=== PATIENT | male | born 1960 | race Caucasian/White ===

== ENCOUNTER 2016-12-21 20:41 | Emergency (ER) | payer OTHER ==
[2016-12-21] MEDS ORDERED: PROPARACAINE 0.5% OPHTH DROPS 15 ML BTL LEFT EYE STA (20:44)
[2016-12-21 20:53] VITALS: BP 93/70; PULSE 60; RESP 18; TEMP 97.8
[2016-12-21] MEDS ORDERED: TOBRAMYCIN 0.3% OPHTH DROPS 5 ML BTL RIGHT EYE STA (20:56)
--- NOTE | 2016-12-21 20:57 | ED ---
Eye Problem HPI - General Stated complaint: FB eye Source: patient, RN notes reviewed Mode of arrival: ambulatory Limitations: no limitations - History of Present Illness Initial comments: 56-year-old male present emergency department with chief complaint of right eye foreign body. Patient states he was working with some metal pain yesterday. Patient states his been bothering him all day. Patient denies any blurred vision. Patient states is slightly painful. Patient states that he does not know his last tetanus was that he does not believe and tetanus and refuses all tetanus shots. Patient states that he's had foreign bodies in his eye the past. - Related Data Previous Rx's Medication Instructions Recorded Hydrocodone/Acetaminophen [[place] 1 each PO Q6HR PRN #30 tab 09/18/16 5-325] predniSONE 10 mg PO DAILY #23 tab 09/18/16 Tobramycin [Tobrex 0.3% Ophth Soln] 1 drop RIGHT EYE Q4HR #5 ml 12/21/16 Allergies Allergy/AdvReac Type Severity Reaction Status Date / Time No Known Allergies Allergy Verified 12/21/16 20:47 Review of Systems ROS Statement: Those systems with pertinent positive or pertinent negative responses have been documented in the HPI. ROS Other: All systems not noted in ROS Statement are negative. Past Medical History Past Medical History: GERD/Reflux, Myocardial Infarction ([place]), Osteoarthritis ( OA), Thyroid Disorder Additional Past Medical History / Comment(s): Abcess on back, removed and cultured. On antibiotics for a while. Fall 2014 Last Myocardial Infarction Date:: 03/14/16 History of Any Multi-Drug Resistant Organisms: MRSA Date of last positivie culture/infection: April, MDRO Source:: Middle back abcess Past Surgical History: Heart Catheterization Additional Past Surgical History / Comment(s): 03/14/16 cardiac cath normal, R hand index and little finger tendon repair, removal of an abscess on his back. Additional Past Anesthesia/Blood Transfusion Reaction / Comment(s): No past transfusions. Past Psychological History: No Psychological Hx Reported Additional Psychological History / Comment(s): Pt's adult son recently moved in with him and pt states his son is "high strung." Pt does not drive. He rides his bicycle all year to get places. Smoking Status: Current every day smoker Past Alcohol Use History: None Reported Additional Past Alcohol Use History / Comment(s): Pt started smoking in 1977 and quit in 2012 then resumed smoking 6 months ago-1ppd. Past Drug Use History: Marijuana Additional Drug Use History / Comment(s): Pt states he smokes marijuana on occassion but not daily. - Past Family History Father Family Medical History: Diabetes Mellitus, Myocardial Infarction ([place]) Additional Family Medical History / Comment(s): Father had an [place] at the age of 78 or 79yrs and shortly thereafter. Mother Family Medical History: Vascular Disorder Additional Family Medical History / Comment(s): Passed from a AAA that burst at the age of 72yrs.. General Exam Limitations: no limitations General appearance: alert, in no apparent distress Head exam: Present: atraumatic, normocephalic, normal inspection Eye exam: Present: PERRL, EOMI, conjunctival injection (Right). Absent: normal appearance (Foreign body noted in the 8 o'clock position black dot), scleral icterus, periorbital swelling Pupils: Present: other (2 drops of proparacaine were used to anesthetize the right eye complete relief of all symptoms. Fluorescein dye was used to evaluate the right eye foreign body noted in the 8 o'clock position) ENT exam: Present: normal exam, normal oropharynx, mucous membranes moist, TM's normal bilaterally, normal external ear exam Neck exam: Present: normal inspection, full ROM. Absent: tenderness, meningismus, lymphadenopathy Respiratory exam: Present: normal lung sounds bilaterally. Absent: respiratory distress, wheezes, rales, rhonchi, stridor Cardiovascular Exam: Present: regular rate, normal rhythm, normal heart sounds. Absent: systolic murmur, diastolic murmur, rubs, gallop, clicks Course Vital Signs 12/21/16 20:48 Temperature 97.8 F Pulse Rate 60 Respiratory 18 Rate Blood Pressure 93/70 O2 Sat by Pulse 100 Oximetry Procedures - Procedures Initial comment: Right eye foreign body 2 drops of proparacaine were used to anesthetize the right eye jas brush was used to remove foreign body completely no rust ring Medical Decision Making - Medical Decision Making 56-year-old male present emergency department with chief complaint of foreign bite to the right eye. This was removed using albuterol brushed well no compilations. Patient refused tetanus understands risks. Patient follow-up with in one to 2 days. Return parameters were discussed. Disposition Clinical Impression: Corneal FB (foreign body) Disposition: HOME SELF-CARE Condition: Stable Instructions: Eye Foreign Body (ED) Additional Instructions: Please return to the Emergency Department if symptoms worsen or any other concerns. Prescriptions: Tobramycin [Tobrex 0.3% Ophth Soln] 1 drop RIGHT EYE Q4HR #5 ml Referrals: Arielle Irby MD [Primary Care Provider] - 1-2 days Denis Dubois MD [STAFF PHYSICIAN] - 1-2 days Time of Disposition: 20:57
== END 2016-12-21 21:04 | disposition home or self-care (01) ==
LOC: EC 20:41
DX: T15.01XA Foreign body in cornea, right eye, initial encounter (principal); F17.200 Nicotine dependence, unspecified, uncomplicated
CPT/HCPCS: 65220; 99283

== ENCOUNTER → 2017-02-17 | Outpatient (CLI) | payer OTHER ==
--- NOTE | 2017-02-17 16:14 | MR ---
EXAMINATION TYPE: MR knee RT wo con DATE OF EXAM: 02/17/2017 COMPARISON: NONE HISTORY: Knee pain TECHNIQUE: Multiplanar, multisequence imaging of the right knee is performed without IV contrast. FINDINGS: MEDIAL MENISCUS: Anterior and posterior horns are intact without tear. LATERAL MENISCUS: Anterior and posterior horns are intact without tear. CRUCIATE LIGAMENTS: The anterior and posterior cruciate ligaments are intact and unremarkable. COLLATERAL LIGAMENTS: The medial collateral ligament and lateral collateral ligament complex are inta ct and unremarkable. EXTENSOR MECHANISM: Visualized quadriceps and patellar tendons are intact. EFFUSION: No significant suprapatellar joint effusion. POPLITEAL CYST: No popliteal/terry cyst. TRICOMPARTMENT SPACES: There is loss of articular surface of the posterior patella. There is narrowin g of the patellofemoral joint space. Medial and lateral compartments appear preserved. BONE MARROW SIGNAL: There is increased signal within the substance of the medial superior patella and inferior lateral patella as well as increased signal within the mid lateral portion of the lateral t ibial plateau. Contusions should be considered. OTHER: No additional significant abnormality is appreciated. IMPRESSION: Contusions of the patella. Fractures of the articular cartilage surface may be present with loss of t he articular surface of the posterior patella especially superiorly. Small contusion of the mid later al tibial plateau may be present.
== END | disposition home or self-care (01) ==
LOC: RADMRIMAIN 06:13
PROVIDERS: ATTEND Orthopaedic Surgery
DX: S80.01XA Contusion of right knee, initial encounter (principal)

== ENCOUNTER 2017-04-06 18:58 | Emergency (ER) | payer OTHER ==
[2017-04-06 19:05] VITALS: BP 117/79; PULSE 84; RESP 17; TEMP 98.3
[2017-04-06] MEDS ORDERED: HYDROcodone/APAP 5-325MG 1 EACH TAB PO STA (19:39)
--- NOTE | 2017-04-06 19:39 | ED ---
Extremity Problem HPI - General Chief complaint: Extremity Problem,Nontraumatic Stated complaint: R knee pain Time Seen by Provider: 04/06/17 19:08 Source: patient, RN notes reviewed Mode of arrival: ambulatory Limitations: no limitations - History of Present Illness Initial comments: Patient is a 56-year-old male presents to the emergency room for evaluation of chronic right knee pain. Patient states he has chronic right knee osteoarthritis and Martinez cyst. Patient states he follows up with Dr. Timmons with no relief of symptoms. Patient states Dr. Timmons doesn't do anything for him. Patient states he woke up today and his knee was very stiff and is causing him pain to walk. Patient denies any recent injury or trauma to his knee. Patient denies redness or swelling to his knee. Patient denies any numbness or tingling going down his leg. Patient states he needs something for pain. - Related Data Previous Rx's Medication Instructions Recorded HYDROcodone/APAP 5-325MG [[place] 1 tab PO Q6HR PRN #12 tab 04/06/17 5-325] Allergies Allergy/AdvReac Type Severity Reaction Status Date / Time No Known Allergies Allergy Verified 04/06/17 19:24 Review of Systems ROS Statement: Those systems with pertinent positive or pertinent negative responses have been documented in the HPI. ROS Other: All systems not noted in ROS Statement are negative. Past Medical History Past Medical History: GERD/Reflux, Myocardial Infarction ([place]), Osteoarthritis ( [place]), Thyroid Disorder Additional Past Medical History / Comment(s): Abcess on back, removed and cultured. On antibiotics for a while. Fall 2014 Last Myocardial Infarction Date:: 03/14/16 History of Any Multi-Drug Resistant Organisms: MRSA Date of last positivie culture/infection: April, MDRO Source:: Middle back abcess Past Surgical History: Heart Catheterization Additional Past Surgical History / Comment(s): 03/14/16 cardiac cath normal, R hand index and little finger tendon repair, removal of an abscess on his back. Additional Past Anesthesia/Blood Transfusion Reaction / Comment(s): No past transfusions. Past Psychological History: No Psychological Hx Reported Smoking Status: Current every day smoker Past Alcohol Use History: None Reported Past Drug Use History: Marijuana - Past Family History Father Family Medical History: Diabetes Mellitus, Myocardial Infarction ([place]) Additional Family Medical History / Comment(s): Father had an [place] at the age of 78 or 79yrs and shortly thereafter. Mother Family Medical History: Vascular Disorder Additional Family Medical History / Comment(s): Passed from a AAA that burst at the age of 72yrs.. General Exam - General Exam Comments Initial Comments: Pacing the exam hyde, no acute distress. Limitations: no limitations General appearance: alert, in no apparent distress Head exam: Present: atraumatic, normocephalic, normal inspection Eye exam: Present: normal appearance ENT exam: Present: normal exam Neck exam: Present: normal inspection Respiratory exam: Absent: respiratory distress Right Knee exam: Present: full ROM, tenderness Neurovascular tendon exam: Present: no vascular compromise Back exam: Present: normal inspection Neurological exam: Present: alert, oriented X3, CN II-XII intact Psychiatric exam: Present: normal affect, normal mood Skin exam: Present: warm, dry, intact, normal color. Absent: rash Course Vital Signs 04/06/17 19:02 Temperature 98.3 F Pulse Rate 84 Respiratory 17 Rate Blood Pressure 117/79 O2 Sat by Pulse 95 Oximetry Medical Decision Making - Medical Decision Making Patient is a 56-year-old male presents to the emergency room for evaluation of right knee pain. Patient complaining of chronic right knee pain. Will provide patient with a new public finance specialist to follow up with, since he is unsatisfied with his current physician. I will send patient with a short dose of [place]. I did discuss with patient that we do not prescribe pain medications for chronic issues and that he would need to follow-up with a specialist or his primary care provider for future prescription refills. Patient left before receiving pain medications or his discharge instructions. Disposition Clinical Impression: Chronic pain of right knee Disposition: HOME SELF-CARE Condition: Good Instructions: Knee Pain (ED), Arthralgia (ED) Additional Instructions: Take Tylenol or Motrin as needed for pain. Take [place] as needed for severe pain. Please follow-up with public finance specialist for further evaluation. If new symptoms develop or symptoms worsen, please return to the ER. Prescriptions: HYDROcodone/APAP 5-325MG [[place] 5-325] 1 tab PO Q6HR PRN #12 tab PRN Reason: Nausea Referrals: Arielle Irby MD [Primary Care Provider] - 1-2 days Nic Rossi MD [STAFF PHYSICIAN] - 1-2 days Time of Disposition: 19:32
== END 2017-04-06 19:45 | disposition home or self-care (01) ==
LOC: EC 18:58
DX: G89.29 Other chronic pain (principal); M25.561 Pain in right knee; F17.200 Nicotine dependence, unspecified, uncomplicated
CPT/HCPCS: 99282

== ENCOUNTER 2017-04-15 01:03 | Emergency (ER) | payer OTHER ==
[2017-04-15 01:09] VITALS: RESP 18
--- NOTE | 2017-04-15 01:25 | ED ---
General Adult HPI - General Chief complaint: Extremity Problem,Nontraumatic Stated complaint: Arm/Shoulder Pain Time Seen by Provider: 04/15/17 01:13 Source: patient, RN notes reviewed Mode of arrival: ambulatory Limitations: no limitations - History of Present Illness Initial comments: Patient is a pleasant 56-year-old male presenting to the emergency Department with left shoulder discomfort. Onset was when he woke yesterday morning at 5: 30. Discomfort has been slowly increasing since that time. Discomfort is mild at rest. Discomfort is severe with movement. No history of similar symptoms previously. Patient has been painting with family member the past couple of days. Patient has been holding self his left arm and moving ladder. No chest pain. No dyspnea. Discomfort is mostly in the left anterior shoulder. - Related Data Previous Rx's Medication Instructions Recorded HYDROcodone/APAP 5-325MG [[place] 1 tab PO Q6HR PRN #12 tab 04/06/17 5-325] Acetaminophen-Codeine 300-30mg 1 each PO Q4H PRN #12 tablet 04/15/17 [Tylenol #3] Ibuprofen [Motrin] 600 mg PO Q6HR PRN #20 tab 04/15/17 Allergies Allergy/AdvReac Type Severity Reaction Status Date / Time No Known Allergies Allergy Verified 04/15/17 01:09 Review of Systems ROS Statement: Those systems with pertinent positive or pertinent negative responses have been documented in the HPI. ROS Other: All systems not noted in ROS Statement are negative. Constitutional: Denies: fever Eyes: Denies: eye pain ENT: Denies: ear pain Respiratory: Denies: cough, dyspnea Cardiovascular: Denies: chest pain Endocrine: Denies: fatigue Gastrointestinal: Denies: abdominal pain Genitourinary: Denies: urgency Musculoskeletal: Denies: back pain Skin: Denies: rash Neurological: Denies: weakness Past Medical History Past Medical History: GERD/Reflux, Myocardial Infarction ([place]), Osteoarthritis ( OA), Thyroid Disorder Additional Past Medical History / Comment(s): Abcess on back, removed and cultured. On antibiotics for a while. Fall 2014 Last Myocardial Infarction Date:: 03/14/16 History of Any Multi-Drug Resistant Organisms: MRSA Date of last positivie culture/infection: April, MDRO Source:: Middle back abcess Past Surgical History: Heart Catheterization Additional Past Surgical History / Comment(s): 03/14/16 cardiac cath normal, R hand index and little finger tendon repair, removal of an abscess on his back. Additional Past Anesthesia/Blood Transfusion Reaction / Comment(s): No past transfusions. Past Psychological History: No Psychological Hx Reported Smoking Status: Current every day smoker Past Alcohol Use History: None Reported Past Drug Use History: Marijuana - Past Family History Father Family Medical History: Diabetes Mellitus, Myocardial Infarction ([place]) Additional Family Medical History / Comment(s): Father had an [place] at the age of 78 or 79yrs and shortly thereafter. Mother Family Medical History: Vascular Disorder Additional Family Medical History / Comment(s): Passed from a AAA that burst at the age of 72yrs.. General Exam Limitations: no limitations General appearance: alert, in no apparent distress Head exam: Present: atraumatic Eye exam: Present: normal appearance, PERRL ENT exam: Present: normal oropharynx Neck exam: Present: normal inspection Respiratory exam: Present: normal lung sounds bilaterally Cardiovascular Exam: Present: regular rate, normal rhythm Expanded Peripheral pulses: 2+: Radial (R), Radial (L) GI/Abdominal exam: Present: soft. Absent: tenderness Left Shoulder Exam: Present: tenderness (Tenderness over the biceps tendon. Moderate. Mildl tenderness over the deltoid.), other (Pain with active range of motion. No pain with passive range of motion.). Absent: swelling, deformity , dislocation, erythema Upper Arm exam: Present: normal inspection Elbow exam: Present: normal inspection Forearm Wrist exam: Present: normal inspection Hand Wrist exam: Present: normal inspection Neuro motor exam: Present: other (Good international logistics coordinator strength. Sensation intact to light touch.) Vascular: Present: normal capillary refill Back exam: Present: normal inspection Neurological exam: Present: alert. Absent: motor sensory deficit Psychiatric exam: Present: normal affect, normal mood Skin exam: Present: normal color Course Vital Signs 04/15/17 01:07 Temperature 97.1 F L Pulse Rate 71 Respiratory 18 Rate Blood Pressure 116/80 O2 Sat by Pulse 97 Oximetry Medical Decision Making - Radiology Data Radiology results: image reviewed (Left shoulder x-ray does show a small ossification in the left AC joint.) Disposition Clinical Impression: Shoulder strain, Biceps tendinitis Disposition: HOME SELF-CARE Condition: Stable Instructions: Tendinitis (ED), Shoulder Pain (ED) Additional Instructions: Use sling for the next 3-4 days then decrease use of sling. Anti-inflammatories , prescription for Motrin written. Please follow-up with primary care physician and orthopedics. Return for increased pain, chest pain, fever, weakness, worsening or changing symptoms or rash or other concerns. Prescriptions: Acetaminophen-Codeine 300-30mg [Tylenol #3] 1 each PO Q4H PRN #12 tablet PRN Reason: Pain Ibuprofen [Motrin] 600 mg PO Q6HR PRN #20 tab PRN Reason: Pain Referrals: Arielle Irby MD [Primary Care Provider] - 1-2 days Gary Bolaños MD [Medical Doctor] - 1-2 days Time of Disposition: 02:21
--- NOTE | 2017-04-15 01:55 | XR ---
PROCEDURE: FILM LEFT SHOULDER HISTORY: 56-year-old male with left shoulder pain. COMPARISON: None TECHNIQUE: Frontal internal rotation, frontal external rotation, and transscapular-Y views of the left shoulder were obtained. FINDINGS: Bony structures are intact. Joint spaces are preserved. Small, approximately 3 millimeter, ossific density projecting over the acromioclavicular joint only on the frontal internal rotation view, of unclear etiology, may be due to degenerative changes. Soft tissues are within normal limits. IMPRESSION: Small ossific density projecting over the acromioclavicular joint, of unclear etiology, may be due to degenerative changes. Otherwise, unremarkable views of the left shoulder.
[2017-04-15] MEDS ORDERED: KETOROLAC 60 MG/2 ML VIAL IM STA (02:20)
[2017-04-15 02:23] VITALS: BP 119/69; PULSE 77; TEMP 97.3
== END 2017-04-15 02:34 | disposition home or self-care (01) ==
LOC: EC 01:03
DX: S46.912A Strain of unspecified muscle, fascia and tendon at shoulder and upper arm level, left arm, initial encounter (principal); M75.22 Bicipital tendinitis, left shoulder; F17.200 Nicotine dependence, unspecified, uncomplicated; X50.0XXA Overexertion from strenuous movement or load, initial encounter
CPT/HCPCS: 73030; 99283; 96372; J1885

== ENCOUNTER → 2018-06-12 | Outpatient (CLI) | payer OTHER ==
--- NOTE | 2018-06-12 09:49 | US ---
EXAMINATION TYPE: US prostate transrectal DATE OF EXAM: 06/12/2018 COMPARISON: NONE CLINICAL HISTORY: R97.2 elevated PSA. Elevated PSA, difficulty urinating, burning during urination. This examination was performed using the transrectal probe. EXAM MEASUREMENTS: Gland Size: 5.4 x 3.8 x 3.6cm Volume: 38.7 Predicted PSA: 4.65 Actual PSA (if available):46.6 Enlarged heterogeneous gland without any definite lesions seen at this time, calcifications seen with in central zone. Seminal vesicles are unremarkable towards beginning of study. Calcifications are seen centrally in th e prostate gland which is enlarged. No suspicious hypoechoic nodules are identified within gland on i mages saved. IMPRESSION: Heterogeneous enlarged prostate gland consistent with BPH. Actual PSA is significantly o ut of proportion to predicted PSA, urology referral advised to further investigate with ultrasound gu ided random biopsies. Predicted PSA = volume x 0.12 ng/ml Calculated Volume = 0.5236 x L x W x H
== END | disposition home or self-care (01) ==
LOC: RADUSMAIN 08:34
PROVIDERS: ATTEND Internal Medicine
DX: N40.0 Benign prostatic hyperplasia without lower urinary tract symptoms (principal)
CPT/HCPCS: 76872

== ENCOUNTER 2018-06-16 02:38 | Emergency (ER) | payer OTHER ==
[2018-06-16 02:44] VITALS: BP 131/91; PULSE 73; RESP 20; TEMP 72
--- NOTE | 2018-06-16 02:59 | ED ---
Male Urogenital HPI - General Source: patient, family, RN notes reviewed Mode of arrival: ambulatory Limitations: no limitations <Lucrecia Louis - Last Filed: 06/16/18 03:10> <Rukhsana Grove - Last Filed: 06/16/18 05:19> - General Chief complaint: Urogenital Stated complaint: Male Time Seen by Provider: 06/16/18 02:47 - History of Present Illness Initial comments: This is a 57-year-old male who presents to the emergency department with chief complaint of urinary retention. Patient reports a history of difficulty urinating. He underwent an ultrasound of his prostate earlier this week and was told that his prostate was enlarged. He is waiting to hear back from urology for a follow-up appointment. Patient states that since 7 AM this morning he has been having difficulty urinating. He states that he has tried to urinate at least 30 times but has been unable to empty his bladder. He reports dribbling. He also reports lower abdominal discomfort. Denies fevers or chills, chest pain or shortness of breath, nausea or vomiting, diarrhea or constipation. (Lucrecia Louis) - Related Data Home Medications Medication Instructions Recorded Confirmed No Known Home Medications 06/16/18 06/16/18 Allergies Allergy/AdvReac Type Severity Reaction Status Date / Time No Known Allergies Allergy Verified 06/16/18 02:44 Review of Systems ROS Other: All systems not noted in ROS Statement are negative. <Lucrecia Louis - Last Filed: 06/16/18 03:10> ROS Other: All systems not noted in ROS Statement are negative. <Ruk[place]ana Grove - Last Filed: 06/16/18 05:19> ROS Statement: Those systems with pertinent positive or pertinent negative responses have been documented in the HPI. Past Medical History Past Medical History: GERD/Reflux, Myocardial Infarction ([place]), Osteoarthritis ( OA), Thyroid Disorder Additional Past Medical History / Comment(s): Abcess on back, removed and cultured. On antibiotics for a while. Fall 2014 Last Myocardial Infarction Date:: 03/14/16 History of Any Multi-Drug Resistant Organisms: MRSA Date of last positivie culture/infection: April, MDRO Source:: Middle back abcess Past Surgical History: Heart Catheterization Additional Past Surgical History / Comment(s): 03/14/16 cardiac cath normal, R hand index and little finger tendon repair, removal of an abscess on his back. Additional Past Anesthesia/Blood Transfusion Reaction / Comment(s): No past transfusions. Past Psychological History: No Psychological Hx Reported Smoking Status: Current every day smoker Past Alcohol Use History: None Reported Past Drug Use History: Marijuana - Past Family History Father Family Medical History: Diabetes Mellitus, Myocardial Infarction ([place]) Additional Family Medical History / Comment(s): Father had an [place] at the age of 78 or 79yrs and shortly thereafter. Mother Family Medical History: Vascular Disorder Additional Family Medical History / Comment(s): Passed from a AAA that burst at the age of 72yrs.. <Lucrecia Louis - Last Filed: 06/16/18 03:10> General Exam Limitations: no limitations <Lucrecia Louis - Last Filed: 06/16/18 03:10> <[place] - Last Filed: 06/16/18 05:19> - General Exam Comments Initial Comments: General: Awake and alert, well-developed; in no apparent distress. HEENT: Head atraumatic, normocephalic. Pupils are equal, round and reactive to light. Extraocular movements intact. Oropharynx moist without erythema or exudate. Neck: Supple. Normal ROM. Cardiovascular: Regular rate and rhythm. No murmurs, rubs or gallops. Chest symmetrical. Respiratory: Lungs clear to auscultation bilaterally. No wheezes, rales or rhonchi. Normal respiratory effort with no use of accessory muscles. Abdomen: Soft, non-distended. Mild tenderness on palpation of the suprapubic region. No rigidity, rebound or guarding. Normal bowel sounds in all 4 quadrants. Musculoskeletal: Normal ROM, no tenderness bilateral upper and lower extremities. Ambulating normally. Skin: [place], warm and dry without rashes or lesions. Neurological: Alert and oriented x3. CN II-XII grossly intact. Speech is fluent and answers are appropriate. No focal neuro deficits. Psychiatric: Normal mood and affect. No overt signs of depression or anxiety noted. (Lucrecia Louis) Vital Signs 06/16/18 02:41 Temperature 72 F L Pulse Rate 73 Respiratory 20 Rate Blood Pressure 131/91 O2 Sat by Pulse 98 Oximetry Medical Decision Making <Lucrecia Louis - Last Filed: 06/16/18 03:10> <[place] - Last Filed: 06/16/18 05:19> - Medical Decision Making This is a 57-year-old male with history of BPH who presents to the emergency department with chief complaint of urinary retention. Patient reports difficulty urinating and dribbling since 7 AM this morning. He was seen on June 12 for an ultrasound of the prostate. These findings were reviewed. It revealed evidence for an enlarged prostate gland consistent with BPH. Bladder scan was performed which did reveal almost a liter of fluid within the bladder. Sanchez catheter was initiated and patient instructed to follow up with urology. He is provided with contact information. Vital signs are stable and he is in no acute distress. He will be discharged home at this time. He is in agreement with plan and voices understanding. All questions were answered. (Lucrecia Louis) I was available for consultation in the emergency department. The history and physical exam were done by the midlevel provider. I was consulted for this patient's care. I reviewed the case with the midlevel provider and based on their presentation of the patient, I agree with the assessment, medical decision making and plan of care as documented. Review of the patient's chart I note that there was an air and document his temperature. Patient was afebrile during his ED stay. (Ruk[place]ana Grove) Disposition Is patient prescribed a controlled substance at d/c from ED?: No Time of Disposition: 02:58 <Lucrecia Louis - Last Filed: 06/16/18 03:10> <[place] Grove - Last Filed: 06/16/18 05:19> Clinical Impression: Urinary retention Disposition: HOME SELF-CARE Condition: Good Instructions: Urinary Retention in Men (ED), Sanchez Catheter Placement and Care (ED) Additional Instructions: As discussed, please follow-up with urology in the morning. Contact information is provided. Please follow up with primary care provider within 1-2 days. Return to emergency department if symptoms should worsen or any concerns arise. Referrals: Arielle Irby MD [Primary Care Provider] - 1-2 days Kodi Kong MD [STAFF PHYSICIAN] - 1-2 days
== END 2018-06-16 03:11 | disposition home or self-care (01) ==
LOC: EC 02:38
DX: R33.9 Retention of urine, unspecified (principal); R19.8 Other specified symptoms and signs involving the digestive system and abdomen; I25.2 Old myocardial infarction; F17.200 Nicotine dependence, unspecified, uncomplicated; Z86.14 Personal history of Methicillin resistant Staphylococcus aureus infection; Z95.818 Presence of other cardiac implants and grafts
CPT/HCPCS: 51702; 51798; 99283

== ENCOUNTER 2018-06-17 12:46 | Emergency (ER) | payer OTHER ==
[2018-06-17 13:03] VITALS: RESP 16; TEMP 98.7
--- NOTE | 2018-06-17 13:28 | ED ---
General Adult HPI - General Chief complaint: Urogenital Stated complaint: CATHETER ISSUE Time Seen by Provider: 06/17/18 13:15 Source: patient, RN notes reviewed Mode of arrival: ambulatory Limitations: no limitations - History of Present Illness Initial comments: 57-year-old male presents to the emergency department for chief complaint of possible urinary retention. Patient has a history of BPH for which she received in ultrasound on June 12. At that time ultrasound revealed heterogeneous enlarged prostate gland consistent with benign prostatic pertinent review. Actual PSA is significantly out of proportion to predicted PSA and radiologist recommends further investigation with ultrasound-guided random biopsies. Patient states he has a history of urinary retention however this worsened night. Patient states he began to urinate small amounts every 30 minutes. He came to the emergency department and Sanchez catheter was placed without difficulty. Patient states that Sanchez catheter does not seem to be working properly. He is producing urine but states he has to bear down to have urine flow into the Sanchez. Patient states he has actually had bowel movements because he is trying to bear down to urinate. Patient states these are formed bowel movements. Patient denies any changes in back pain or weakness or numbness in the lower extremities. Patient has no other complaints at this time including shortness of breath, chest pain, abdominal pain, nausea or vomiting, headache, or visual changes. - Related Data Previous Rx's Medication Instructions Recorded Cephalexin [Keflex] 500 mg PO Q8H 7 Days cap 06/17/18 Allergies Allergy/AdvReac Type Severity Reaction Status Date / Time No Known Allergies Allergy Verified 06/17/18 13:03 Review of Systems ROS Statement: Those systems with pertinent positive or pertinent negative responses have been documented in the HPI. ROS Other: All systems not noted in ROS Statement are negative. Past Medical History Past Medical History: GERD/Reflux, Myocardial Infarction ([place]), Osteoarthritis ( OA), Thyroid Disorder Additional Past Medical History / Comment(s): Abcess on back, removed and cultured. On antibiotics for a while. Fall 2014, urinary catheter Last Myocardial Infarction Date:: 03/14/16 History of Any Multi-Drug Resistant Organisms: MRSA Date of last positivie culture/infection: April, MDRO Source:: Middle back abcess Past Surgical History: Heart Catheterization Additional Past Surgical History / Comment(s): 03/14/16 cardiac cath normal, R hand index and little finger tendon repair, removal of an abscess on his back. Additional Past Anesthesia/Blood Transfusion Reaction / Comment(s): No past transfusions. Past Psychological History: No Psychological Hx Reported Smoking Status: Current every day smoker Past Alcohol Use History: None Reported Past Drug Use History: Marijuana - Past Family History Father Family Medical History: Diabetes Mellitus, Myocardial Infarction ([place]) Additional Family Medical History / Comment(s): Father had an [place] at the age of 78 or 79yrs and shortly thereafter. Mother Family Medical History: Vascular Disorder Additional Family Medical History / Comment(s): Passed from a AAA that burst at the age of 72yrs.. General Exam Limitations: no limitations General appearance: alert, in no apparent distress Head exam: Present: atraumatic, normocephalic, normal inspection Eye exam: Present: normal appearance, PERRL, EOMI. Absent: scleral icterus, conjunctival injection, periorbital swelling ENT exam: Present: normal exam, mucous membranes moist Neck exam: Present: normal inspection. Absent: tenderness, meningismus, lymphadenopathy Respiratory exam: Present: normal lung sounds bilaterally. Absent: respiratory distress, wheezes, rales, rhonchi, stridor Cardiovascular Exam: Present: regular rate, normal rhythm, normal heart sounds. Absent: systolic murmur, diastolic murmur, rubs, gallop, clicks GI/Abdominal exam: Present: soft, tenderness (Mild suprapubic tenderness, no abdominal tenderness noted elsewhere.), normal bowel sounds. Absent: distended , guarding, rebound, rigid Neurological exam: Present: alert, oriented X3, CN II-XII intact Psychiatric exam: Present: normal affect, normal mood Course Vital Signs 06/17/18 06/17/18 13:00 16:11 Temperature 98.7 F 98.7 F Pulse Rate 74 81 Respiratory 16 16 Rate Blood Pressure 117/84 147/98 O2 Sat by Pulse 95 Oximetry Medical Decision Making - Medical Decision Making 57-year-old male presents to the emergency determine for chief complaint of difficulty urinating with catheter placement times one day. Patient had a transrectal ultrasound of the prostate about one week ago and was supposed to see a urologist for biopsies as PSA is elevated on out of proportion to prostate size. On exam patient has very minimal suprapubic tenderness with no other abdominal tenderness. Patient states he has the urge to urinate with the catheter and is unable to do so. Patient states he has emptied the catheter multiple times since it has been placed. Bladder scan was done which revealed 399 mL in the bladder. Catheter was flushed and effectively drained. No resistance with flushing according to the nurse. Bladder scan after flush revealed 0 mL. Urinalysis was completed and urine culture was sent. Patient was started on Keflex as he has recently had a transrectal ultrasound. Discussed patient likely has urge to urinate due to the sensation of the catheter. Discussed urine should flow freely out of the catheter and patient does not need to bear down to urinate. Discussed monitoring catheter output and returning if catheter is not draining. However, at this time catheter does appear to be patent. Patient will follow up with urology. He was already given the referral information to urology. He states they do not take his insurance and he will be calling his insurance on Tuesday to find a urologist close to him that does take his insurance. Otherwise he will follow-up with primary care. Discussed returning to the emergency department if patient is still having difficulties urinating or urine is not draining into catheter bag. Discussed with Dr. Mg. - Lab Data Lab Results 06/17/18 Range/Units 13:25 Urine Color Light Red Urine Appearance Cloudy (Clear) Urine pH 6.5 (5.0-8.0) Ur Specific [place] 1.019 (1.001-1.035) Urine Protein 1+ H (Negative) Urine Glucose (UA) Negative (Negative) Urine Ketones Negative (Negative) Urine Blood Large H (Negative) Urine Nitrite Negative (Negative) Urine Bilirubin Negative (Negative) Urine Urobilinogen 2.0 (<2.0) mg/dL Ur Leukocyte Esterase Large H (Negative) Urine RBC >182 H (0-5) /hpf Urine WBC 50 H (0-5) /hpf Ur Squamous Epith Cells <1 (0-4) /hpf Urine Mucus Rare H (None) /hpf Disposition Clinical Impression: Sanchez catheter in place Disposition: HOME SELF-CARE Condition: Good Instructions: Sanchez Catheter Placement and Care (ED) Additional Instructions: Please take antibiotic as directed. Please follow-up with primary care and urology in 1-2 days. Return to the emergency department if you are not producing urine or you have any abdominal pain or any other worsening symptoms. Prescriptions: Cephalexin [Keflex] 500 mg PO Q8H 7 Days cap Is patient prescribed a controlled substance at d/c from ED?: No Referrals: Arielle Irby MD [Primary Care Provider] - 1-2 days Neville Deras MD [STAFF PHYSICIAN] - 1-2 days Time of Disposition: 15:59
[2018-06-17 13:54] LABS: Appearance,Urine Cloudy (Clear); Bilirubin,Urine Negative (Negative); Blood,Urine Large (Negative); Color,Urine Light Red; Glucose,Urine (UA) Negative (Negative); Ketones,Urine Negative (Negative); Leukocyte Esterase,Urine Large (Negative); Mucus,Urine Rare /hpf; Nitrite,Urine Negative (Negative); PH, Urine 6.5 (5.0-8.0); Protein,Urine 1+ (Negative); RBC,Urine >182 /hpf (0-5); Specific Gravity,Urine 1.019 (1.001-1.035); Squamous Epithelial Cell,Urine <1 /hpf (0-4); WBC,Urine 50 /hpf (0-5)
[2018-06-17 16:14] VITALS: BP 147/98; PULSE 81
== END 2018-06-17 16:11 | disposition home or self-care (01) ==
LOC: EC 12:46
DX: Z46.6 Encounter for fitting and adjustment of urinary device (principal); R30.0 Dysuria; I25.2 Old myocardial infarction; F17.200 Nicotine dependence, unspecified, uncomplicated; Z95.5 Presence of coronary angioplasty implant and graft
CPT/HCPCS: 51798; 81001; 87086; 99284

== ENCOUNTER 2018-06-19 13:02 | Emergency (ER) | payer OTHER ==
[2018-06-19 13:17] VITALS: RESP 18
[2018-06-19] MEDS ORDERED: LIDOCAINE 2% GEL 30 ML TUBE TOPICAL ONE (13:45)
--- NOTE | 2018-06-19 13:51 | ED ---
General Adult HPI - General Chief complaint: Urogenital Stated complaint: blood in urine Time Seen by Provider: 06/19/18 13:37 Source: patient, RN notes reviewed Mode of arrival: ambulatory Limitations: no limitations - History of Present Illness Initial comments: Patient is a pleasant 57-year-old male presenting to the emergency Department with complaints of hematuria. Patient noticed hematuria this morning. Patient states it was more red earlier however now is mild at this time. Patient denies any clots. Patient states catheter has still been flowing. Patient also admits to having some discomfort at the tip of the penis. Patient also states she has not yet been able to follow-up with a urologist secondary to insurance reasons. - Related Data Previous Rx's Medication Instructions Recorded Cephalexin [Keflex] 500 mg PO Q8H 7 Days cap 06/17/18 Tamsulosin [Flomax] 0.4 mg PO DAILY #14 cap 06/19/18 Allergies Allergy/AdvReac Type Severity Reaction Status Date / Time No Known Allergies Allergy Verified 06/19/18 13:17 Review of Systems ROS Statement: Those systems with pertinent positive or pertinent negative responses have been documented in the HPI. ROS Other: All systems not noted in ROS Statement are negative. Constitutional: Denies: fever Eyes: Denies: eye pain ENT: Denies: ear pain Respiratory: Denies: cough Cardiovascular: Denies: chest pain Endocrine: Denies: fatigue Gastrointestinal: Denies: abdominal pain, vomiting Genitourinary: Reports: hematuria Musculoskeletal: Denies: back pain Skin: Denies: rash Neurological: Denies: weakness Past Medical History Past Medical History: GERD/Reflux, Myocardial Infarction ([place]), Osteoarthritis ( OA), Prostate Disorder, Thyroid Disorder Additional Past Medical History / Comment(s): Abcess on back, removed and cultured. On antibiotics for a while. Fall 2014, urinary catheter Last Myocardial Infarction Date:: 03/14/16 History of Any Multi-Drug Resistant Organisms: MRSA Date of last positivie culture/infection: April, MDRO Source:: Middle back abcess Past Surgical History: Heart Catheterization Additional Past Surgical History / Comment(s): 03/14/16 cardiac cath normal, R hand index and little finger tendon repair, removal of an abscess on his back. Additional Past Anesthesia/Blood Transfusion Reaction / Comment(s): No past transfusions. Past Psychological History: No Psychological Hx Reported Smoking Status: Current every day smoker Past Alcohol Use History: None Reported Past Drug Use History: Marijuana - Past Family History Father Family Medical History: Diabetes Mellitus, Myocardial Infarction ([place]) Additional Family Medical History / Comment(s): Father had an [place] at the age of 78 or 79yrs and shortly thereafter. Mother Family Medical History: Vascular Disorder Additional Family Medical History / Comment(s): Passed from a AAA that burst at the age of 72yrs.. General Exam Limitations: no limitations General appearance: alert, in no apparent distress Head exam: Present: atraumatic Eye exam: Present: normal appearance Neck exam: Present: normal inspection Respiratory exam: Present: normal lung sounds bilaterally Cardiovascular Exam: Present: regular rate, normal rhythm GI/Abdominal exam: Present: soft. Absent: tenderness exam: Present: other (Minimal skin breakdown at the penile meatus on the right. Patient does have catheter and with a bloody appearance to the urine.) Extremities exam: Present: normal inspection Neurological exam: Present: alert Psychiatric exam: Present: normal affect, normal mood Skin exam: Present: normal color Course Vital Signs 06/19/18 13:14 Temperature 98.3 F Pulse Rate 74 Respiratory 18 Rate Blood Pressure 146/94 O2 Sat by Pulse 97 Oximetry Disposition Clinical Impression: Hematuria Disposition: HOME SELF-CARE Condition: Stable Instructions: Hematuria (ED) Additional Instructions: Please follow-up with a urologist in the next couple days for recheck. If you are unable to follow up with urologist provided secondary to insurance reasons then please call your insurance company or primary care physician to help arrange urology follow-up. Return for increased bleeding, other areas of bleeding, increased pain, abdominal pain, fevers, worsening or changing symptoms or other concerns. Prescriptions: Tamsulosin [Flomax] 0.4 mg PO DAILY #14 cap Is patient prescribed a controlled substance at d/c from ED?: No Referrals: Arielle Irby MD [Primary Care Provider] - 1-2 days Time of Disposition: 13:50
--- NOTE | 2018-06-19 14:05 | ED ---
Disposition Clinical Impression: Hematuria Disposition: HOME SELF-CARE Condition: Stable Instructions: Hematuria (ED) Additional Instructions: Please follow-up with a urologist in the next couple days for recheck. If you are unable to follow up with urologist provided secondary to insurance reasons then please call your insurance company or primary care physician to help arrange urology follow-up. Return for increased bleeding, other areas of bleeding, increased pain, abdominal pain, fevers, worsening or changing symptoms or other concerns. Prescriptions: Tamsulosin [Flomax] 0.4 mg PO DAILY #14 cap Is patient prescribed a controlled substance at d/c from ED?: No Referrals: Arielle Irby MD [Primary Care Provider] - 1-2 days Neville Deras MD [STAFF PHYSICIAN] - 1-2 days Time of Disposition: 14:05
[2018-06-19] MEDS ORDERED: LIDOCAINE URO-JET JELLY 2% 5 ML KIT URETHRAL STA (15:34)
[2018-06-19 16:56] LABS: Basophils # (A) 0.1 k/uL (0-0.2); Basophils % (A) 1 %; Eosinophils # (A) 0.4 k/uL (0-0.7); Eosinophils % (A) 5 %; HCT 54.4 % (39.0-53.0); HGB 17.2 gm/dL (13.0-17.5); Hypochromasia Slight; Lymphocytes # (A) 2.1 k/uL (1.0-4.8); Lymphocytes % (A) 26 %; MCH 30.1 pg (25.0-35.0); MCHC 31.5 g/dL (31.0-37.0); MCV 95.4 fL (80.0-100.0); Monocytes # (A) 0.6 k/uL (0-1.0); Monocytes % (A) 7 %; Neutrophils # (A) 4.7 k/uL (1.3-7.7); Neutrophils % (A) 59 %; Platelet Count 239 k/uL (150-450); RBC 5.71 m/uL (4.30-5.90); RDW 14.1 % (11.5-15.5); WBC 7.9 k/uL (3.8-10.6)
[2018-06-19 17:00] LABS: Partial Thromboplastin Time 23.2 sec (22.0-30.0); Prothrombin Time 10.2 sec (9.0-12.0)
[2018-06-19 17:02] LABS: Appearance,Urine Cloudy (Clear); Bilirubin,Urine Negative (Negative); Blood,Urine Large (Negative); Color,Urine Red; Glucose,Urine (UA) Negative (Negative); Ketones,Urine Negative (Negative); Leukocyte Esterase,Urine Moderate (Negative); Mucus,Urine Few /hpf; Nitrite,Urine Negative (Negative); Protein,Urine 2+ (Negative); RBC,Urine >182 /hpf (0-5); Specific Gravity,Urine 1.019 (1.001-1.035); Urobilinogen,Urine <2.0 mg/dL (<2.0); WBC,Urine 65 /hpf (0-5)
[2018-06-19 17:10] LABS: ALT 31 U/L (21-72); AST 35 U/L (17-59); Albumin 4.2 g/dL (3.5-5.0); Alkaline Phosphatase 114 U/L (38-126); Anion Gap 11 mmol/L; Blood Urea Nitrogen 22 mg/dL (9-20); Carbon Dioxide 25 mmol/L (22-30); Chloride 106 mmol/L (98-107); Glucose 86 mg/dL (74-99); Potassium 4.7 mmol/L (3.5-5.1); Sodium 142 mmol/L (137-145); Total Bilirubin 1.1 mg/dL (0.2-1.3); Total Protein 7.8 g/dL (6.3-8.2)
--- NOTE | 2018-06-19 18:02 | CT ---
EXAMINATION TYPE: CT abdomen pelvis w con DATE OF EXAM: 06/19/2018 COMPARISON: Prostate ultrasound June 12, 2018 HISTORY: Hematuria and bladder retention CT DLP: 1550.6 mGycm, Automated Exposure Control for Dose Reduction was Utilized. CONTRAST: CT scan of the abdomen and pelvis is performed without oral but with IV Contrast, patient injected wi th 100 mL of Isovue 300. FINDINGS: LUNG BASES: Dependent atelectasis is present. LIVER/GB: No significant abnormality is appreciated. PANCREAS: Pancreas is difficult to distinguish from adjacent nonopacified bowel likely within normal limits SPLEEN: No significant abnormality is seen. ADRENALS: No significant abnormality is seen. KIDNEYS: Slightly Low-lying right kidney is seen. There is symmetric cortical medullary uptake and ex cretion both kidneys without evidence of hydronephrosis bilaterally. Sanchez catheter is seen within ur inary bladder which is predominantly decompressed and thus suboptimally evaluated BOWEL: Evaluation bowel is suboptimal secondary to lack of enteric contrast. No suspicious small and large bowel dilatation is seen. PROSTATE/SEMINAL VESICLES: Slightly enlarged prostate gland correlates with recent ultrasound. Few sc attered pelvic phleboliths are present. LYMPH NODES: No greater than 1cm abdominal or pelvic lymph nodes are appreciated. OSSEOUS STRUCTURES: Dextroconvex scoliosis centered near thoracolumbar junction is present there is m oderate multilevel disc space narrowing and vacuum disc phenomenon in the lumbar spine. There is mult ilevel facet arthropathy in the mid to lower lumbar spine. OTHER: No significant additional abnormality is seen. IMPRESSION: Suboptimal evaluation of bladder due to decompression from Sanchez catheter. No significan t acute finding is seen.
[2018-06-19 18:44] VITALS: BP 151/100; PULSE 71; TEMP 97.9
== END 2018-06-19 18:44 | disposition home or self-care (01) ==
LOC: EC 13:02
DX: R31.9 Hematuria, unspecified (principal); L98.8 Other specified disorders of the skin and subcutaneous tissue; F17.200 Nicotine dependence, unspecified, uncomplicated; Z86.14 Personal history of Methicillin resistant Staphylococcus aureus infection; Z96.0 Presence of urogenital implants
CPT/HCPCS: 51798; 36415; 80053; 85025; 85610; 85730; 81001; 74177; 99284; Q9967

== ENCOUNTER 2018-09-03 14:17 | Emergency (ER) | payer OTHER ==
[2018-09-03 14:26] VITALS: BP 107/74; PULSE 75; RESP 18; TEMP 98
--- NOTE | 2018-09-03 14:42 | ED ---
Extremity Problem HPI - General Chief complaint: Extremity Problem,Nontraumatic Stated complaint: Finger swelling Time Seen by Provider: 09/03/18 14:28 Source: patient, RN notes reviewed, old records reviewed Mode of arrival: ambulatory Limitations: no limitations - History of Present Illness Initial comments: This Patient is a 57-year-old male who presents emergency department today with right middle finger pain and swelling times one day. Patient states that it started yesterday after he fell he was writing. He denies any significant trauma to the finger. He reports that he has full range of motion of the finger and sensation. He states it feels like it is throbbing in the tip of the finger. Patient denies any other symptoms at this time. He states his poor vision was able see if there is anything stuck within the finger. - Related Data Previous Rx's Medication Instructions Recorded Cephalexin [Keflex] 500 mg PO Q8H 7 Days cap 06/17/18 Tamsulosin [Flomax] 0.4 mg PO DAILY #14 cap 06/19/18 Sulfamethox-Tmp 800-160Mg [Bactrim 2 tab PO Q12HR #28 tab 09/03/18 DS 800-160 mg] Allergies Allergy/AdvReac Type Severity Reaction Status Date / Time No Known Allergies Allergy Verified 09/03/18 14:26 Review of Systems ROS Statement: Those systems with pertinent positive or pertinent negative responses have been documented in the HPI. ROS Other: All systems not noted in ROS Statement are negative. Past Medical History Past Medical History: GERD/Reflux, Myocardial Infarction ([place]), Osteoarthritis ( OA), Prostate Disorder, Thyroid Disorder Additional Past Medical History / Comment(s): Abcess on back, removed and cultured. On antibiotics for a while. Fall 2014, urinary catheter Last Myocardial Infarction Date:: 03/14/16 History of Any Multi-Drug Resistant Organisms: MRSA Date of last positivie culture/infection: April, MDRO Source:: Middle back abcess Past Surgical History: Heart Catheterization Additional Past Surgical History / Comment(s): 03/14/16 cardiac cath normal, R hand index and little finger tendon repair, removal of an abscess on his back. Additional Past Anesthesia/Blood Transfusion Reaction / Comment(s): No past transfusions. Past Psychological History: No Psychological Hx Reported Smoking Status: Current every day smoker Past Alcohol Use History: None Reported Past Drug Use History: Marijuana - Past Family History Father Family Medical History: Diabetes Mellitus, Myocardial Infarction ([place]) Additional Family Medical History / Comment(s): Father had an RI at the age of 78 or 79yrs and shortly thereafter. Mother Family Medical History: Vascular Disorder Additional Family Medical History / Comment(s): Passed from a AAA that burst at the age of 72yrs.. General Exam - General Exam Comments Initial Comments: This is a 49-year-old male. Alert and oriented. Patient appears in no significant distress. Limitations: no limitations General appearance: alert, in no apparent distress Head exam: Present: atraumatic, normocephalic, normal inspection Eye exam: Present: normal appearance, PERRL, EOMI. Absent: scleral icterus, conjunctival injection, periorbital swelling ENT exam: Present: normal exam, mucous membranes moist Neck exam: Present: normal inspection. Absent: tenderness, meningismus, lymphadenopathy Respiratory exam: Present: normal lung sounds bilaterally. Absent: respiratory distress, wheezes, rales, rhonchi, stridor Cardiovascular Exam: Present: regular rate, normal rhythm, normal heart sounds. Absent: systolic murmur, diastolic murmur, rubs, gallop, clicks GI/Abdominal exam: Present: soft, normal bowel sounds. Absent: distended, guarding, rebound, rigid Extremities exam: Present: normal inspection, full ROM, normal capillary refill. Absent: tenderness, pedal edema, joint swelling, calf tenderness Right Forearm Wrist exam: Present: normal inspection, full ROM Hand Wrist exam: Present: full ROM. Absent: normal inspection (Patient has evidence of swelling over the distal right middle finger extending near the lateral aspect of the nail bed. Concern for an early paronychia. Over the plantar aspect of the pad of finger there was too small black areas that do police to be possibility of metal foreign body that are superficial.) Neuro motor exam: Present: wrist extension intact, thumb opposition intact, thumb IP flexion intact, thumb adduction intact Vascular: Present: normal capillary refill Back exam: Present: normal inspection Neurological exam: Present: alert, oriented X3, CN II-XII intact Psychiatric exam: Present: normal affect, normal mood Skin exam: Present: warm, dry, intact, normal color. Absent: rash Course Vital Signs 09/03/18 14:23 Temperature 98.0 F Pulse Rate 75 Respiratory 18 Rate Blood Pressure 107/74 O2 Sat by Pulse 96 Oximetry Medical Decision Making - Medical Decision Making Patient is a 57-year-old male who presents today with right middle finger pain and swelling times one day. He worsening it. There was some small slivers over the pad of the finger these are removed with forceps. Patient has no drainable paronychia or abscess fell at this time. Do believe that could be concerning for an early felon. But he has normal sensation and full range of motion of the finger. I discussed that we will increase his Bactrim that he is currently on for urinary tract infection. He'll take to 2 pills twice a day. Discussed that he should follow-up with senior marketing specialist. QUESTIONS answered return parameters were discussed. Disposition Clinical Impression: Finger swelling Disposition: HOME SELF-CARE Condition: Good Instructions: Paronychia (ED) Additional Instructions: Patient advised to follow-up with senior marketing specialist tomorrow for concerns for the possibility of an early "Felon". Take the antibiotic as prescribed. Return to emergency department if any alarming signs symptoms occur. Patient should do frequent warm soaks of the finger. Prescriptions: Sulfamethox-Tmp 800-160Mg [Bactrim DS 800-160 mg] 2 tab PO Q12HR #28 tab Is patient prescribed a controlled substance at d/c from ED?: No Referrals: Arielle Irby MD [Primary Care Provider] - 1-2 days Vivian Alanis PAC [PHYSICIAN FIELD PROFESSIONAL] - 1-2 days Kavin Nguyen DO [Doctor of Osteopathic Medicine] - 1-2 days Time of Disposition: 15:15
== END 2018-09-03 15:30 | disposition home or self-care (01) ==
LOC: EC 14:17
DX: M79.89 Other specified soft tissue disorders (principal); M79.644 Pain in right finger(s); I25.2 Old myocardial infarction; F17.200 Nicotine dependence, unspecified, uncomplicated; Z86.14 Personal history of Methicillin resistant Staphylococcus aureus infection; Z95.818 Presence of other cardiac implants and grafts
CPT/HCPCS: 99283

== ENCOUNTER 2018-11-14 14:39 | Emergency (ER) | payer OTHER ==
[2018-11-14 14:44] VITALS: BP 151/103; PULSE 93; RESP 20; TEMP 99.9
[2018-11-14] MEDS ORDERED: ACETAMINOPHEN TAB 325 MG TAB PO STA (14:52)
--- NOTE | 2018-11-14 15:05 | XR ---
EXAMINATION TYPE: XR chest 2V DATE OF EXAM: 11/14/2018 COMPARISON: Chest x-ray June 08, 2016 HISTORY: Chills and fever. TECHNIQUE: Frontal and lateral views of the chest are obtained. FINDINGS: There is chronic parenchymal change with reticulonodular opacities right mid lung and biba silar regions. No pleural effusion or pneumothorax is present bilaterally. The cardiac silhouette siz e is within normal limits. The osseous structures are intact. IMPRESSION: Patchy reticulonodular infiltrate right midlung laterally. Consider progress two view est xray.
--- NOTE | 2018-11-14 15:16 | ED ---
Fever HPI - General Chief Complaint: Fever Stated Complaint: Post biopsy, poss fever, chills Time Seen by Provider: 11/14/18 14:47 Source: patient, RN notes reviewed Mode of arrival: ambulatory Limitations: no limitations - History of Present Illness Initial Comments: 58-year-old male presents emergency department with chief complaint of fever, chills. Patient states he had a prostate biopsy this morning states his ribs he left the office he felt that he had a fever and chills he states he did notice that more when he got home. Patient has not taken any recent Tylenol Motrin. He has had a slight runny nose and cough and congestion over the last couple days. Denies any abdominal pain no current dysuria. Patient denies any nausea vomiting diarrhea constipation no sore throat no ear pain. Patient states he feels very achy. - Related Data Home Medications Medication Instructions Recorded Confirmed Ciprofloxacin HCl [Cipro] 500 mg PO BID 11/14/18 11/14/18 Sulfamethox-Tmp 800-160Mg [Bactrim 1 tab PO BID 11/14/18 11/14/18 DS 800-160 mg] Tamsulosin [Flomax] 0.8 mg PO DAILY 11/14/18 11/14/18 Previous Rx's Medication Instructions Recorded Levofloxacin [Levaquin] 500 mg PO DAILY #10 tab 11/14/18 Allergies Allergy/AdvReac Type Severity Reaction Status Date / Time No Known Allergies Allergy Verified 11/14/18 15:14 Review of Systems ROS Statement: Those systems with pertinent positive or pertinent negative responses have been documented in the HPI. ROS Other: All systems not noted in ROS Statement are negative. Past Medical History Past Medical History: GERD/Reflux, Myocardial Infarction ([place]), Osteoarthritis ( OA), Prostate Disorder, Thyroid Disorder Additional Past Medical History / Comment(s): Abcess on back, removed and cultured. On antibiotics for a while. Fall 2014, urinary catheter Last Myocardial Infarction Date:: 03/14/16 History of Any Multi-Drug Resistant Organisms: MRSA Date of last positivie culture/infection: April, MDRO Source:: Middle back abcess Past Surgical History: Heart Catheterization Additional Past Surgical History / Comment(s): 03/14/16 cardiac cath normal, R hand index and little finger tendon repair, removal of an abscess on his back. Additional Past Anesthesia/Blood Transfusion Reaction / Comment(s): No past transfusions. Past Psychological History: No Psychological Hx Reported Smoking Status: Current every day smoker Past Alcohol Use History: None Reported Past Drug Use History: Marijuana - Past Family History Father Family Medical History: Diabetes Mellitus, Myocardial Infarction ([place]) Additional Family Medical History / Comment(s): Father had an [place] at the age of 78 or 79yrs and shortly thereafter. Mother Family Medical History: Vascular Disorder Additional Family Medical History / Comment(s): Passed from a AAA that burst at the age of 72yrs.. General Exam Limitations: no limitations General appearance: alert, in no apparent distress Head exam: Present: atraumatic, normocephalic, normal inspection Eye exam: Present: normal appearance, PERRL, EOMI. Absent: scleral icterus, conjunctival injection, periorbital swelling ENT exam: Present: normal exam, normal oropharynx, mucous membranes moist Neck exam: Present: normal inspection, full ROM. Absent: tenderness, meningismus, lymphadenopathy Respiratory exam: Present: rhonchi. Absent: normal lung sounds bilaterally, respiratory distress, wheezes, rales, stridor Cardiovascular Exam: Present: regular rate, normal rhythm, normal heart sounds. Absent: systolic murmur, diastolic murmur, rubs, gallop, clicks GI/Abdominal exam: Present: soft, normal bowel sounds. Absent: distended, tenderness, guarding, rebound, rigid Back exam: Absent: CVA tenderness (R), CVA tenderness (L) Neurological exam: Present: alert, oriented X3, CN II-XII intact Skin exam: Present: warm, dry, intact, normal color. Absent: rash Course Vital Signs 11/14/18 14:41 Temperature 99.9 F H Pulse Rate 93 Respiratory 20 Rate Blood Pressure 151/103 O2 Sat by Pulse 97 Oximetry Medical Decision Making - Medical Decision Making 58-year-old male presented for cough congestion, fever. Patient chest x-ray shows evidence of right-sided pneumonia. Patient we given antibiotics and is advised follow-up for recheck. - Lab Data Lab Results 11/14/18 Range/Units 15:05 Influenza Type A RNA Not Detected (Not Detectd) Influenza Type B (PCR) Not Detected (Not Detectd) Disposition Clinical Impression: Pneumonia Disposition: HOME SELF-CARE Condition: Stable Instructions (If sedation given, give patient instructions): Bacterial Pneumonia (ED) Additional Instructions: Please return to the Emergency Department if symptoms worsen or any other concerns. Prescriptions: Levofloxacin [Levaquin] 500 mg PO DAILY #10 tab Is patient prescribed a controlled substance at d/c from ED?: No Referrals: Arielle Irby MD [Primary Care Provider] - 1-2 days
== END 2018-11-14 15:35 | disposition home or self-care (01) ==
LOC: EC 14:39
DX: J18.9 Pneumonia, unspecified organism (principal); I25.2 Old myocardial infarction; F17.200 Nicotine dependence, unspecified, uncomplicated; Z79.899 Other long term (current) drug therapy; Z95.5 Presence of coronary angioplasty implant and graft
CPT/HCPCS: 71046; 87502; 99283